=== PATIENT | female | born 1995 | race Caucasian/White ===

== ENCOUNTER 2024-01-06 01:05 | Emergency (ER) | payer BC, MEDICAID ==
[2024-01-06 01:22] LABS: BASOPHILS ABSOLUTE AUTO 0.02 K/uL (0.00-0.20); BASOPHILS PERCENT AUTO 0.2 % (0.0-1.0); EOSINOPHILS PERCENT AUTO 1.9 % (0.0-6.0); HEMATOCRIT 36.9 % (37.0-47.0); HEMOGLOBIN 12.6 g/dL (12.0-16.0); IMMATURE GRAN ABSOLUTE AUTO 0.03 K/uL (0.00-0.05); IMMATURE GRAN PERCENT AUTO 0.3 % (0.0-0.4); LYMPHOCYTES ABSOLUTE AUTO 3.41 K/uL (1.00-4.80); LYMPHOCYTES PERCENT AUTO 32.7 % (24.0-44.0); MEAN CORPUSCULAR HEMOGLOBIN 28.4 pg (28.0-32.0); MEAN CORPUSCULAR HGB CONC 34.1 g/dL (32.0-36.0); MEAN CORPUSCULAR VOLUME 83.3 fL (83.0-99.0); MONOCYTES ABSOLUTE AUTO 0.57 K/uL (0.00-0.80); MONOCYTES PERCENT AUTO 5.5 % (0.0-8.0); NEUTROPHILS ABSOLUTE AUTO 6.21 K/uL (1.80-7.70); NEUTROPHILS PERCENT AUTO 59.4 % (41.0-71.0); PLATELET COUNT,PLT 201 K/uL (150-400); RED BLOOD CELL COUNT 4.43 M/uL (4.10-5.30); WHITE BLOOD CELL COUNT,WBC 10.44 K/uL (3.9-11.3)
[2024-01-06 01:45] LABS: A/G RATIO 0.9 (0.9-1.6); ALBUMIN 3.5 g/dL (3.4-5.0); BILIRUBIN TOTAL 0.4 mg/dL (0.2-1.0); CARBON DIOXIDE,CO2 24.1 mmol/L (21.0-32.0); CREATININE 0.8 mg/dL (0.6-1.0); EST CRCL DRUG DOSING (CG) 99.99 mL/min; POTASSIUM,K 3.9 mmol/L (3.5-5.1); PROTEIN TOTAL,TP 7.3 g/dL (6.4-8.2)
[2024-01-06] MEDS: Sodium Chloride 0.9% 1,000 ML IV STA (01:49)
[2024-01-06] MEDS: Sodium Chloride 0.9% 2.5 ML Syringe FLUSH PRN (01:50)
[2024-01-06] MEDS: Sodium Chloride 0.9% 10 ML Syringe FLUSH PRN (01:51)
[2024-01-06 02:01] LABS: LACTIC ACID 0.9 mmol/L (0.4-2.0)
[2024-01-06] MEDS: Iopamidol 755 MG/ML 500 ML Multipack Bottle IVPUSH STA (02:11)
[2024-01-06 02:13] LABS: BILIRUBIN,URINE NEGATIVE (NEGATIVE); COLOR,URINE YELLOW; GLUCOSE,URINE NEGATIVE (NEGATIVE); KETONES,URINE NEGATIVE (NEGATIVE); LEUKOCYTE ESTERASE,URINE NEGATIVE (NEGATIVE); NITRITE,URINE NEGATIVE (NEGATIVE); OCCULT BLOOD,URINE SMALL (NEGATIVE); PROTEIN,URINE NEGATIVE (NEGATIVE)
[2024-01-06 02:16] LABS: APPEARANCE,URINE HAZY
[2024-01-06 02:17] LABS: BACTERIA,URINE FEW (NEGATIVE); EPITHELIAL CELLS,URINE OCCASIONAL (NONE-FEW); MUCUS,URINE MODERATE (NONE-MOD); WBC,URINE 0-2 (0-5/HPF)
[2024-01-06 03:02] VITALS: BP 121/79; PULSE 56
== END 2024-01-06 03:20 | disposition home or self-care (01) ==
LOC: MW.ED 01:05
DX: R19.09 Other intra-abdominal and pelvic swelling, mass and lump (principal); Z75.8 Other problems related to medical facilities and other health care
CPT/HCPCS: 36415; 74177; 76830; 80053; 81001; 81025; 83605; 83690; 84703; 85025; 99284; J3490; J7030; Q9967

== ENCOUNTER 2024-06-21 22:00 | Emergency (ER) | payer MEDICAID ==
[2024-06-21] MEDS: Morphine 4 MG/ML Syringe IM ONE (23:16)
[2024-06-21] MEDS: Lidocaine 2% 11 ML Jelly Filled Syringe MUCMEM ONE (23:17)
[2024-06-22 00:31] VITALS: BP 121/71; PULSE 63
== END 2024-06-22 00:31 | disposition home or self-care (01) ==
LOC: MW.ED 22:00
DX: K62.89 Other specified diseases of anus and rectum (principal)
CPT/HCPCS: 96372; 99283; A9270; J2270

== ENCOUNTER 2024-06-24 08:44 | Emergency (ER) | payer MEDICAID ==
[2024-06-24] MEDS ORDERED: Sodium Chloride 0.9% 10 ML Syringe FLUSH PRN (08:49)
[2024-06-24] MEDS: Sodium Chloride 0.9% 1,000 ML IV ONE (09:00)
[2024-06-24 09:02] LABS: BASOPHILS ABSOLUTE AUTO 0.02 K/uL (0.00-0.20); BASOPHILS PERCENT AUTO 0.2 % (0.0-1.0); EOSINOPHILS ABSOLUTE AUTO 0.08 K/uL (0.00-0.45); EOSINOPHILS PERCENT AUTO 0.9 % (0.0-6.0); HEMATOCRIT 31.2 % (37.0-47.0); IMMATURE GRAN ABSOLUTE AUTO 0.02 K/uL (0.00-0.05); IMMATURE GRAN PERCENT AUTO 0.2 % (0.0-0.4); LYMPHOCYTES ABSOLUTE AUTO 2.38 K/uL (1.00-4.80); LYMPHOCYTES PERCENT AUTO 27.1 % (24.0-44.0); MEAN CORPUSCULAR HEMOGLOBIN 25.8 pg (28.0-32.0); MEAN CORPUSCULAR HGB CONC 32.1 g/dL (32.0-36.0); MEAN CORPUSCULAR VOLUME 80.4 fL (83.0-99.0); MEAN PLATELET VOLUME 11.5 fL (9.4-12.3); MONOCYTES ABSOLUTE AUTO 0.73 K/uL (0.00-0.80); MONOCYTES PERCENT AUTO 8.3 % (0.0-8.0); NEUTROPHILS ABSOLUTE AUTO 5.55 K/uL (1.80-7.70); NEUTROPHILS PERCENT AUTO 63.3 % (41.0-71.0); PLATELET COUNT,PLT 146 K/uL (150-400); RED BLOOD CELL COUNT 3.88 M/uL (4.10-5.30); WHITE BLOOD CELL COUNT,WBC 8.78 K/uL (3.9-11.3)
[2024-06-24] MEDS: droPERidol 5 MG/2 ML SDV IVPUSH ONE (09:21)
[2024-06-24] MEDS: Morphine 2 MG/ML SYRINGE IVPUSH ONE ×2 (09:22→10:19)
[2024-06-24] MEDS ORDERED: Morphine 4 MG/ML Syringe IVPUSH PRN (09:40)
[2024-06-24 09:41] LABS: A/G RATIO 0.8 (0.9-1.6); BILIRUBIN TOTAL 0.4 mg/dL (0.2-1.0); CALCIUM 8.4 mg/dL (8.5-10.1); CARBON DIOXIDE,CO2 27.2 mmol/L (21.0-32.0); CREATININE 0.8 mg/dL (0.6-1.0); EST CRCL DRUG DOSING (CG) 99.08 mL/min; MAGNESIUM 2.1 mg/dL (1.8-2.4); POTASSIUM,K 3.4 mmol/L (3.5-5.1); PROTEIN TOTAL,TP 6.6 g/dL (6.4-8.2)
[2024-06-24 10:49] LABS: HEMATOCRIT 29.1 % (37.0-47.0); HEMOGLOBIN 9.5 g/dL (12.0-16.0)
[2024-06-24] MEDS: Iopamidol 755 Mg/ML 100 ML Bottle IVPUSH ONE (10:49)
[2024-06-24] MEDS: Ketorolac 30 MG/ML SDV IVPUSH ONE (12:36)
[2024-06-24 13:53] VITALS: BP 112/64; PULSE 82
[2024-06-24] MEDS: Morphine 4 MG/ML Syringe IVPUSH ONE (13:57)
== END 2024-06-24 14:00 | disposition home or self-care (01) ==
LOC: MW.ED 08:44
DX: K92.2 Gastrointestinal hemorrhage, unspecified (principal); K62.5 Hemorrhage of anus and rectum; G89.18 Other acute postprocedural pain; R42 Dizziness and giddiness; D62 Acute posthemorrhagic anemia; Z87.19 Personal history of other diseases of the digestive system; Z79.899 Other long term (current) drug therapy; Z90.49 Acquired absence of other specified parts of digestive tract
CPT/HCPCS: 36415; 74177; 80053; 83735; 84703; 85014; 85018; 85025; 93005; 96361; 96374; 96375; 96376; 99285; J1790; J1885; J2270; J7030; Q9967; 99284

== ENCOUNTER 2024-09-19 10:44 | Emergency (ER) | payer MEDICAID ==
[2024-09-19 11:19] VITALS: BP 118/64; PULSE 61
[2024-09-19] MEDS: Amoxicillin/Clavulanate K 875-125 MG Tab PO ONE (11:33)
== END 2024-09-19 11:34 | disposition home or self-care (01) ==
LOC: MW.ED 10:44
DX: H66.91 Otitis media, unspecified, right ear (principal); Z75.8 Other problems related to medical facilities and other health care; Z90.49 Acquired absence of other specified parts of digestive tract
CPT/HCPCS: 99282; A9270; 99283

== ENCOUNTER 2024-11-19 07:51 | Emergency (ER) | payer MEDICAID ==
[2024-11-19 09:32] VITALS: BP 122/62; PULSE 67
== END 2024-11-19 09:32 | disposition home or self-care (01) ==
LOC: MW.ED 07:51
DX: H92.01 Otalgia, right ear (principal); Z75.8 Other problems related to medical facilities and other health care; Z90.49 Acquired absence of other specified parts of digestive tract
CPT/HCPCS: 99282